=== PATIENT | female | born 1995 | race Caucasian/White ===

== ENCOUNTER 2018-03-26 14:24 | Emergency (ER) | payer SELFPAY ==
[~2018-03-26] VITALS: Ht 162.6 cm; Wt 45.4 kg
--- NOTE | 2018-03-26 14:55 | NUR ---
Obtained medical records from [facility] at patient's and ERMD's request. Release of information faxed to [facility].
--- NOTE | 2018-03-26 15:21 | NUR ---
Patient discharged to home in stable conditon. Written and verbal after care instructions given. Patient verbalizes understanding of instructions.
== END 2018-03-26 15:21 | disposition home or self-care (01) ==
LOC: ER 14:26
DX: R56.9 Unspecified convulsions (principal); Z88.8 Allergy status to other drugs, medicaments and biological substances; F12.10 Cannabis abuse, uncomplicated
CPT/HCPCS: A4663

== ENCOUNTER 2018-03-26 16:07 | Emergency (ER) | payer MEDICAID ==
[~2018-03-26] VITALS: Ht 162.6 cm; Wt 45.4 kg
--- NOTE | 2018-03-26 16:15 | NUR ---
seen by Dr buckner.
--- NOTE | 2018-03-26 16:38 | NUR ---
patient crying since arrival. mother and pt's boyfriend at the bedside
[2018-03-26] MEDS ORDERED: LEVETIRACETAM IV 500 MG in IV DEXTROSE 5% 100 ML IV ONE ×2 (16:45→18:30)
--- NOTE | 2018-03-26 17:01 | NUR ---
existing IV #18 infiltrated. removed.
[2018-03-26 17:11] LABS: BASOPHILS # (AUTO) 0.1 K/uL (0.0-8.0); BASOPHILS % (AUTO) 0.5 % (0.0-2.0); EOSINOPHILS % (AUTO) 0.3 % (0.0-7.0); HEMATOCRIT 39.7 % (31.2-41.9); HEMOGLOBIN 13.5 g/dL (10.9-14.3); LYMPHOCYTES # (AUTO) 0.9 K/uL (20.0-40.0); LYMPHOCYTES % (AUTO) 8.5 % (20.5-51.5); MEAN CORPUSCULAR HEMOGLOBIN 30.8 uug (24.7-32.8); MEAN CORPUSCULAR HGB CONC 34 g/dL (32.3-35.6); MONOCYTES # (AUTO) 0.3 K/uL (2.0-10.0); MONOCYTES % (AUTO) 2.9 % (0.0-11.0); NEUTROPHILS # (AUTO) 9.4 K/uL (1.8-8.9); NEUTROPHILS % (AUTO) 87.8 % (38.5-71.5); PLATELET COUNT (AUTO) 312 K/uL (179-408); RED BLOOD CELL COUNT(AUTO) 4.37 MIL/uL (3.63-4.92); WHITE BLOOD COUNT (AUTO) 10.7 K/uL (3.8-11.8)
--- NOTE | 2018-03-26 17:12 | NUR ---
refused IV [place]. Dr Noel notified
[2018-03-26 17:18] LABS: CREATININE 0.6 mg/dL (0.6-1.3); POTASSIUM 3.7 mmol/L (3.5-5.1)
[2018-03-26 17:24] LABS: BILIRUBIN,DIRECT 0.1 mg/dL (0.0-0.2); BILIRUBIN,TOTAL 0.7 mg/dL (0.2-1.0); TOTAL PROTEIN, SERUM 7.4 g/dL (6.4-8.2)
--- NOTE | 2018-03-26 17:40 | NUR ---
IV NS started IV bolus. per mother patient had not had anything to drink for many hours
[2018-03-26] MEDS ORDERED: IV NORMAL SALINE 1000 ML BAG IV ONE (17:45)
--- NOTE | 2018-03-26 18:03 | NUR ---
had periods of peit mal seizures followed with grand mal seizures for 1-2 minute interval times 3. unresponsive during the episodes. o2 applied at 3lnc, suctioned of large amount of oral secretions
--- NOTE | 2018-03-26 18:07 | NUR ---
Call placed to [facility], Dr. Samuels will be paged.
--- NOTE | 2018-03-26 18:09 | NUR ---
[place] speaking with Dr. Samuels
--- NOTE | 2018-03-26 18:58 | NUR ---
Call placed to Dr. Cox (NEURO), message left for return call.
--- NOTE | 2018-03-26 19:12 | NUR ---
sbar report given to Aaron INMAN
--- NOTE | 2018-03-26 19:16 | NUR ---
Assumed care of patient. patient in bed, no acute distress noted. Respirations even and unlabored, no cardiovacular distress noted. patient is refusing inpatient admission.
--- NOTE | 2018-03-26 19:24 | NUR ---
Patient discharged to home in stable conditon. Written and verbal after care instructions given. Patient verbalizes understanding of instructions. Ambulated from ER with stable gait. Accompanied by patients mother and significant other. Peripheral IV removed prior to dischrage. All belongings with patient.
[2018-03-26 19:27] VITALS: BP 110/74
== END 2018-03-26 19:27 | disposition home or self-care (01) ==
LOC: ER 16:08
DX: G40.909 Epilepsy, unspecified, not intractable, without status epilepticus (principal); F12.10 Cannabis abuse, uncomplicated; Z88.8 Allergy status to other drugs, medicaments and biological substances
CPT/HCPCS: 36415; 84703; 85025; 85730; 93005; A4663; J1953; J7060